=== PATIENT | male | born 1975 | race Caucasian/White ===

== ENCOUNTER 2017-02-25 16:09 | Emergency (ER) | payer OTHER ==
[~2017-02-25] VITALS: Ht 175.3 cm; Wt 107.3 kg
[~2017-02-25 16:09] MED LIST: IRON325T PO; MULTTAB50 PO; PRIL40CA
[2017-02-25 16:10] VITALS: BP 156/78
--- NOTE | 2017-02-25 19:40 | REPUSA ---
CLINICAL HISTORY: Left flank pain. TECHNIQUE: Multiple axial, coronal, sagittal CT images were obtained through the abdomen and pelvis without administration of oral or IV contrast material. COMMENTS: The liver is of uniform attenuation without mass or defect. There is no intra or extrahepatic biliar y ductal dilatation. The spleen is mildly enlarged measuring 14.5 cm. The gallbladder is contracted . The pancreas is of normal contour and attenuation characteristics. There is no evidence of adrena l mass. The kidneys are normal in size, shape and configuration. No renal or ureteral calculi are identified . There is no hydroureter or hydronephrosis. There is no evidence for appendicitis. There is no bowel wall thickening. No evidence for small or large bowel obstruction. There is no evidence of abdominal ascites or lymphadenopathy. There is no evidence of intrinsic or extrinsic bladder mass. There is no pelvic ascites or lymphaden opathy. The prostate gland is mildly enlarged containing calcifications. Please correlate with PSA levels. Images of the lung bases show no evidence of pleural or parenchymal mass. There are no pleural effus ions. Small fat containing umbilical hernia is seen. Note is made of an expansile mass involving the left tenth lateral rib measuring 3.5 x 2.6 cm. This may represent a benign lesion such as fibrous dysplasia nevertheless further evaluation is recommende d with MRI pre and post contrast. Biopsy may also be considered. IMPRESSION: 1. Mild splenomegaly. 2. Mildly enlarged prostate. 3. Small fat containing umbilical hernia is seen. 4. Contracted gallbladder. 5. Expansile mass involving the left tenth lateral rib. This may represent a benign lesion such as fibrous dysplasia nevertheless further evaluation is recommended with MRI pre and post contrast. Bio psy may also be considered.
[2017-02-25] MEDS ORDERED: IBUP-1022 PO (19:53)
--- NOTE | 2017-02-25 20:09 | ED PDOC ---
Post-Departure Follow-Up pt left without discussing results, mail discharge paperwork Aj Marinelli Feb 25, 2017 20:09
== END 2017-02-25 20:05 | disposition home or self-care (01) ==
LOC: M ED 16:09
DX: R22.2 Localized swelling, mass and lump, trunk (principal); I10 Essential (primary) hypertension; Z84.1 Family history of disorders of kidney and ureter; Z87.09 Personal history of other diseases of the respiratory system

== ENCOUNTER 2018-04-10 11:40 | Observation (INO) | payer OTHER ==
[~2018-04-10] VITALS: Ht 175.3 cm; Wt 106.8 kg
[~2018-04-10 11:40] MED LIST changes: +IBUP-1022 PO
[2018-04-10] MEDS ORDERED: VITA100T56 PO (11:51)
[2018-04-10] MEDS ORDERED: VITA200016 PO (11:51)
[2018-04-10] MEDS ORDERED: VITA100T59 PO (11:51)
[2018-04-10] MEDS ORDERED: VITA-193 PO (11:51)
[2018-04-10] MEDS ORDERED: FOLI800C PO (11:51)
[2018-04-10 12:30] LABS: BASO % 0.5 % (0.0-1.0); EOS # 0.1 10^3/uL (0.0-0.50); EOS % 2.2 % (0.0-3.0); HEMATOCRIT 20.2 % (42.0-52.0); LYMPH # 0.6 10^3/uL (1.5-4.5); LYMPH % 13.2 % (24.0-44.0); MEAN CORPUSCULAR HEMOGLOBIN 14.3 pg (27.0-33.0); MEAN CORPUSCULAR HGB CONC 22.3 g/dl (32.0-36.5); MEAN CORPUSCULAR VOLUME 64.3 fl (80.0-96.0); MONO # 0.2 10^3/uL (0.0-0.8); MONO % 5.5 % (0.0-5.0); NEUTROPHILS # 3.2 10^3/uL (1.8-7.7); NEUTROPHILS % 77.4 % (36.0-66.0); PLATELET COUNT, AUTOMATED 367 10^3/uL (150-450); RED BLOOD COUNT 3.14 10^6/uL (4.30-6.10); WHITE BLOOD COUNT 4.2 10^3/uL (4.0-10.0)
[2018-04-10 12:32] LABS: HEMOGLOBIN 4.5 g/dl (13.5-17.5)
[2018-04-10 12:48] LABS: ALBUMIN 3.9 GM/DL (3.2-5.2); ALT/SGPT 72 U/L (12-78); BILIRUBIN,TOTAL 0.6 MG/DL (0.2-1.0); BLOOD UREA NITROGEN 8 MG/DL (7-18); CALCIUM LEVEL 8.5 MG/DL (8.5-10.1); CARBON DIOXIDE LEVEL 25 MEQ/L (21-32); CHLORIDE LEVEL 107 MEQ/L (98-107); CK-MB VALUE MASS < 1.0 NG/ML (<3.6); CPK CREATINE PHOSPHOKINASE 45 U/L (39-308); GLOMERULAR FILTRATION RATE > 60.0 (>60); GLUCOSE, FASTING 98 MG/DL (70-100); MB/CK RELATIVE INDEX 2.22 (< OR =4); SODIUM LEVEL 137 MEQ/L (136-145); TOTAL PROTEIN 7.4 GM/DL (6.4-8.2); TROPONIN I < 0.02 NG/ML (< 0.10)
[2018-04-10] MEDS ORDERED: IRONCAP2 PO (14:16)
[2018-04-10] MEDS ORDERED: ASCO500T PO (14:16)
[2018-04-10] MEDS ORDERED: VITA1CAP20 PO (14:16)
[2018-04-10] MEDS ORDERED: VITA400C67 PO (14:16)
[2018-04-10] MEDS ORDERED: B-122500 PO (14:16)
[2018-04-10] MEDS ORDERED: VITA100066 PO (14:17)
[2018-04-10] MEDS ORDERED: VITA80003 PO (14:17)
[2018-04-10 14:47] LABS: FERRITIN 2 NG/ML (26-388); IRON (FE) 7 UG/DL (65-175); PERCENT SATURATION 1.3 % (19.7-50.0); TOTAL IRON BINDING CAPACITY 542 UG/DL (250-450)
[2018-04-10 16:45] VITALS: BP 142/93
--- NOTE | 2018-04-10 17:29 | ECGEPIP ---
Stationary ECG Study [facility] - ED Test Date: 2018-04-10 Pat Name: RUBIN BACA Department: Room: - Gender: M Data Operations Director: [facility] : 1975 Requested By: ANNALEE Ascencio PA-C Order Number: [id number] Reading MD: Estefanía Marcum Measurements Intervals [place] Rate: 70 P: 40 LA: 181 QRS: 45 QRSD: 97 T: 34 QT: 391 QTc: 424 Interpretive Statements SINUS RHYTHM NO PRIOR FOR COMPARISON Electronically Signed On 04-10-2018 17:29:23 EST by Estefanía Marcum
[2018-04-10 22:00] VITALS: BP 144/72
--- NOTE | 2018-04-10 22:26 | HPE ---
DATE OF ADMISSION: 04/10/2018 42-year-old male with a past medical history of internal hemorrhoids, status post banding by Dr. Anne in 2014, who presents to the emergency room with generalized weakness and sinus headache. Incidentally, the patient had blood work done and was found to have a hemoglobin of 4.5 and hematocrit 20.2. The patient was typed and crossed for 4 units of packed red blood cell. Upon questioning the patient, he has always been feeling generally weak and he has been having bouts of bright red blood per rectum for a couple of days and then a couple of days of blood free stool and this has been going on since 2014. He had an endoscopy and colonoscopy done by Dr. Anne and he only found internal hemorrhoids and subsequently had then banded. The patient said that he was blood free from the stool for quite some time but then it started to continue and it has been going on for a couple of years. His last blood work, he claims, was in 2014, which when I did the research it was correct, his last blood work was back on 08/09/2014. The patient denies any chest pain or palpitations, and will be admitted for further management. PAST MEDICAL HISTORY: 1. Lower gastrointestinal bleed back in 2014 and status post internal hemorrhoid banding. ALLERGIES: No known drug allergies. FAMILY HISTORY: Noncontributory. SOCIAL HISTORY: The patient denies tobacco, alcohol or illicit drugs. MEDICATIONS: He takes at home: - vitamin C 1000 mg orally daily - vitamin D 1000 units orally daily - vitamin B12 5000 mcg orally daily - folic acid 800 mcg orally daily - iron complex two caplets orally daily - vitamin A 3000 units orally daily - vitamin E 400 units orally daily - vitamin K 200 mcg orally daily REVIEW OF SYSTEMS: Negative for all ten major systems except what is mentioned in the history of present illness. VITAL SIGNS: Blood pressure 143/73, heart rate is 79 and regular, respiratory rate is 18, temperature 96.8, oxygen saturation 100% on room air. PHYSICAL EXAMINATION: Head is atraumatic, normocephalic. Neck is supple with no jugular venous distention (JVD). Lungs clear to auscultation. S1, S2 audible. No murmurs appreciated. Abdomen is soft. Positive bowel sounds. No pedal edema. Skin is intact. Neurologic examination, the patient is awake, alert and oriented times three. LABORATORIES: WBC 4.2, hemoglobin 4.5, hematocrit 20.2, platelets are 367,000. Sodium 137, potassium 4.0, chloride 107, CO2 of 25, BUN 8, creatinine 0.8, fasting glucose 98, transferrin saturation is 1.3, ferritin is 2, troponin is less than 0.02. IMPRESSION: 1. Gastrointestinal bleed. 2. Acute blood loss anemia. PLAN: The patient is to be admitted to the medical/surgical floor. We will give the patient 2 units of packed red blood cell, he will likely need a third. Follow post transfusion complete blood count (CBC). This is likely a progressive slow bleed that has been going on for years. He is extremely iron deficient. After the blood transfusion, we may also consider giving him some IV iron. However, this bleeding needs to stop. We will have Dr. Mcdonald see the patient and see if any inpatient intervention is necessary or should he be discharged and followup as an outpatient. We will continue following his care on the medical/surgical floor.
[2018-04-11 06:00] VITALS: BP 150/69
[2018-04-11 06:00] LABS: BASO # 0.1 10^3/uL (0.0-0.2); EOS # 0.2 10^3/uL (0.0-0.50); EOS % 3.4 % (0.0-3.0); HEMATOCRIT 23.7 % (42.0-52.0); LYMPH # 1.2 10^3/uL (1.5-4.5); LYMPH % 20.3 % (24.0-44.0); MEAN CORPUSCULAR HEMOGLOBIN 16.6 pg (27.0-33.0); MEAN CORPUSCULAR HGB CONC 24.9 g/dl (32.0-36.5); MEAN CORPUSCULAR VOLUME 66.6 fl (80.0-96.0); MONO # 0.5 10^3/uL (0.0-0.8); MONO % 8.4 % (0.0-5.0); NEUTROPHILS % 66.2 % (36.0-66.0); PLATELET COUNT, AUTOMATED 384 10^3/uL (150-450); RED BLOOD COUNT 3.56 10^6/uL (4.30-6.10)
[2018-04-11 06:04] LABS: HEMOGLOBIN 5.9 g/dl (13.5-17.5)
[2018-04-11 06:26] LABS: BLOOD UREA NITROGEN 8 MG/DL (7-18); CALCIUM LEVEL 8.2 MG/DL (8.5-10.1); CARBON DIOXIDE LEVEL 24 MEQ/L (21-32); CHLORIDE LEVEL 108 MEQ/L (98-107); CREATININE FOR GFR 0.77 MG/DL (0.70-1.30); GLOMERULAR FILTRATION RATE > 60.0 (>60); GLUCOSE, FASTING 121 MG/DL (70-100); POTASSIUM SERUM 3.8 MEQ/L (3.5-5.1); SODIUM LEVEL 139 MEQ/L (136-145)
[2018-04-11 08:26] LABS: ALBUMIN 3.6 GM/DL (3.2-5.2); ALT/SGPT 65 U/L (12-78); BILIRUBIN,DIRECT 0.1 MG/DL (0.0-0.2); BILIRUBIN,TOTAL 0.7 MG/DL (0.2-1.0)
[2018-04-11 08:38] LABS: INR 1.03; PROTHROMBIN TIME 13.6 SECONDS (12.1-14.4)
[2018-04-11] MEDS: VITAMIN E 400 INTERNATIONAL UNITS CAP PO SCH (09:59)
[2018-04-11] MEDS: FERROUS SULFATE 325MG TAB PO SCH ×2 (09:59→20:30)
[2018-04-11] MEDS: FOLIC ACID 1 MG TAB PO SCH (09:59)
[2018-04-11] MEDS: VITAMIN D 1,000 INTERNATIONAL UNITS TABLET PO SCH (10:00)
[2018-04-11] MEDS: ASCORBIC ACID 500 MG TAB PO SCH (10:00)
[2018-04-11 10:33] VITALS: BP 127/74
[2018-04-11 14:00] VITALS: BP 130/75
--- NOTE | 2018-04-11 15:58 | IPN ---
DATE: 04/11/2018 SUBJECTIVE: The patient tells me that he is feeling better this morning. He has no specific complaints at this time. He has not noticed any further bleeding overnight. OBJECTIVE: VITAL SIGNS: Temperature 98.2, pulse 71, respiratory rate 16, blood pressure 150/69, oxygen saturation 100% on room air. GENERAL: He is a well-built, muscular, man sitting on the edge of his bed accompanied by his . He does not appear to be in any acute distress. HEENT: Cranial nerves II-XII grossly intact. He has conjunctival pallor. Moist mucous membranes. No elevation of central venous pressure. CARDIOVASCULAR: S1, S2. Regular rate and rhythm. RESPIRATORY EXAMINATION: Clear. ABDOMINAL EXAMINATION: Benign. EXTREMITIES: No clubbing, cyanosis or edema. LABORATORY STUDIES: WBC 6.0, hemoglobin 5.9, up from 4.5, hematocrit 23.7, platelet count 384. Chemistry panel: Sodium 139, potassium 3.8, chloride 108, bicarbonate 24, BUN 8, creatinine 0.8. Iron 7, total iron binding capacity (TIBC) 542, ferritin 2, transferrin % saturation 1.3. AST 30, down from 39, alkaline phosphatase 111, down from 119, ALT 65. Troponin was negative. INR 1.0. No imaging. ASSESSMENT AND PLAN: This is a 42-year-old man with symptomatic anemia. PROBLEMS: Symptomatic anemia. Likely secondary to gastrointestinal (GI) losses. I question the acuity of it, given how low it is. Looking back, it looks like his hemoglobin was 3.7 back in July 2014 and it improved to 4.9. He reportedly had bandings for internal hemorrhoids done by Dr. Anne. The patient has had intermittent bright red bleeding for the last several years. I suspect that his hemoglobin has gradually trended down to this level and that he needs more definitive evaluation for this banding. I did speak with Dr. Mcdonald of general surgery today, who suggested outpatient followup with Dr. Anne. His hemoglobin did improve from 4.5 to 5.9 this morning, as did his symptoms; however, I do not feel as though his source of bleeding has been adequately addressed and as such, I will give him an additional 2 units at this time in order to optimize his hemoglobin until he is able to follow up in the general surgery clinic for arranging hemorrhoidal banding. I suspect that this bleeding is not acute, but rather has been longstanding and chronic. It appears though he has been anemic with a hemoglobin at [address] back until 2008. I did have a lengthy discussion with both the patient and his , that his iron stores are essentially nonexistent and that in order to replenish these, he will have to first stop his bleeding. We will first transfuse him, then have the patient stop his bleedings and then continue with iron supplementation for a lengthy period of time, but it is important for him as to not overburden his heart and the rest of his body with such low blood volume. He demonstrates good understanding of this and informed me he will be in strict compliance with his physician. Provided his hemoglobin remains stable, no further bleeding and he receives 2 additional units, I expect he could be discharged home with close followup with general surgery as early as tomorrow.
[2018-04-11 16:20] VITALS: BP 132/64
[2018-04-11] MEDS: CYANOCOBALAMIN 500 MCG TAB PO SCH (18:07)
[2018-04-11 18:08] LABS: HEMATOCRIT 28.8 % (42.0-52.0); HEMOGLOBIN 7.7 g/dl (13.5-17.5)
[2018-04-11 22:00] VITALS: BP 140/88
[2018-04-12 05:58] LABS: HEMATOCRIT 27.2 % (42.0-52.0); HEMOGLOBIN 7.1 g/dl (13.5-17.5); MEAN CORPUSCULAR HEMOGLOBIN 18.4 pg (27.0-33.0); MEAN CORPUSCULAR HGB CONC 26.1 g/dl (32.0-36.5); MEAN CORPUSCULAR VOLUME 70.5 fl (80.0-96.0); PLATELET COUNT, AUTOMATED 400 10^3/uL (150-450); RED BLOOD COUNT 3.86 10^6/uL (4.30-6.10); WHITE BLOOD COUNT 5.2 10^3/uL (4.0-10.0)
[2018-04-12 06:00] VITALS: BP 135/71
[2018-04-12 06:13] LABS: BLOOD UREA NITROGEN 10 MG/DL (7-18); CALCIUM LEVEL 8.3 MG/DL (8.5-10.1); CARBON DIOXIDE LEVEL 25 MEQ/L (21-32); CHLORIDE LEVEL 107 MEQ/L (98-107); CREATININE FOR GFR 0.88 MG/DL (0.70-1.30); GLOMERULAR FILTRATION RATE > 60.0 (>60); GLUCOSE, FASTING 92 MG/DL (70-100); SODIUM LEVEL 140 MEQ/L (136-145)
[2018-04-12] MEDS: VITAMIN D 1,000 INTERNATIONAL UNITS TABLET PO SCH (08:19)
[2018-04-12] MEDS: ASCORBIC ACID 500 MG TAB PO SCH (08:19)
[2018-04-12] MEDS: FOLIC ACID 1 MG TAB PO SCH (08:19)
[2018-04-12] MEDS: FERROUS SULFATE 325MG TAB PO SCH (08:19)
[2018-04-12] MEDS: VITAMIN E 400 INTERNATIONAL UNITS CAP PO SCH (08:19)
[2018-04-12] MEDS: CYANOCOBALAMIN 500 MCG TAB PO SCH (08:20)
--- NOTE | 2018-04-12 08:34 | CR ---
DATE OF CONSULTATION: 04/11/2018 REASON FOR CONSULTATION: Gastrointestinal (GI) bleed. HISTORY OF PRESENT ILLNESS: The patient is a 42-year-old male, a patient of Dr. Anne, who has had a history of GI bleeding dating back to 2014 due to internal and external hemorrhoids. He had endoscopies completed then that showed that all of his bleeding was from his hemorrhoids. He then underwent banding in the office and went for about 9 months without any bleeding. Since then, he has had intermittent bleeding on and off of bright red blood only with bowel movements, never to the point where he came back to be reevaluated and have repeat banding done. For the past couple of months, he has started to feel a little weak. He came into the emergency room yesterday complaining of sinus issues and incidentally they noted that his hemoglobin was down to 4.5 so he was admitted and transfused overnight. This morning, he feels much stronger. He does not have any of the weakness that he had on admission. His hemoglobin is only up to 5.9 after 2 units, but he has no symptoms currently. His iron studies show that he is very depleted of iron, even though he has already been on iron supplement outpatient. He has not had any problems with any bleeding since he has been in the hospital. PAST MEDICAL HISTORY: GI bleeding and internal hemorrhoids. PAST SURGICAL HISTORY: Hemorrhoid banding. ALLERGIES: None. FAMILY HISTORY: Noncontributory. HOME MEDICATIONS: Please see med record. SOCIAL HISTORY: Denies drug, alcohol or tobacco abuse. REVIEW OF SYSTEMS: Per positives and negatives as stated in history of present illness (HPI). PHYSICAL EXAMINATION: General: Alert and oriented times three. No acute distress. Vitals: Temperature 98.2, pulse 71, respirations 16, blood pressure 150/69, pulse oximetry 100% on room air. HEENT: Pupils equally round and react to light and accommodation. Heart: S1, S2. Regular rate and rhythm. Lungs: Clear to auscultation bilaterally. Abdomen: Soft, nontender, nondistended. Extremities: No clubbing, cyanosis or edema. LABORATORIES: White count 6, hemoglobin 4.5 and up to 5.9 this morning, platelets 384. Iron is 7, transferrin saturation is 1.3%. Ferritin is 2. ASSESSMENT/PLAN: The patient is a 42-year-old male with signs and symptoms consistent with lower GI bleed most likely secondary to his history of hemorrhoids. Recommendation is to stabilize him medically and possibly given him another unit or two transfusion today. He can then be discharged home and follow up with Dr. Anne in the office to do banding in the office as an outpatient. Inpatient banding is not possible at this point and it is unnecessary to take him to the operating room abd just have the banding done and he can do this in the office. There is no emergency at this point. If for some reason he starts to bleed profusely, then we will definitely readdress it at that time. However, at this point, he can definitely wait and be seen in the office.
[2018-04-12] MEDS ORDERED: FERR1TAB8 PO (09:59)
--- NOTE | 2018-04-12 10:11 | DS.PDOC ---
Discharge Summary General Date of Admission Apr 10, 2018 at 15:15 Date of Discharge 04/12/2018 Discharge Summary PROCEDURES PERFORMED DURING STAY: [None]. ADMITTING DIAGNOSES / DISCHARGE DIAGNOSES: Symptomatic anemia - likely 2/2 GI blood loss DVT prophylaxis COMPLICATIONS/CHIEF COMPLAINT: Acute Blood Loss Anemia Gi Bleed. HISTORY OF PRESENT ILLNESS: Patient is a 42 year old male with a PMHx of Internal hemorrhoids (s/p banding w/ Dr. Anne 2014) who presented to [facility] with generalized weakness / sinus headache. Patient had blood work competed that revealed a Hg of 4.5. He was admitted to hospitalist service for further evaluation and treatment. Surgery was called on consultation. HOSPITAL COURSE: Symptomatic anemia - likely 2/2 GI blood loss - Presented with light-headedness / dizziness; has had complete resolution of symptoms; denies any additional rectal bleeding - Hx of rectal hemorrhoid banding with Dr. Anne (2014) - Physical non-revealing - s/p 4 units PRBC - Hg improved to 7.7 from 4.5 - Appears stable - c/w Ferrous sulfate - Dr. Mcdonald onboard; will have outpatient f/u with Dr Anne for suspected internal hemorrhoids DVT prophylaxis - c/w SCDs ALLERGIES: Please see below. PHYSICAL EXAMINATION ON DISCHARGE: Vitals (See below) General: Lying in bed, no acute distress, comfortable, AAOx3 HEENT: NC, AT CVS: RRR, +S1S2 Lungs: Fair air entry b/l, -w/r/r Abdomen: Soft, ND, NT Extremities: - Edema, - Calf tenderness LABORATORY DATA: Please see below. ACTIVITY: [As tolerated]. DISCHARGE PLAN: Follow up with PCP and Dr. Anne within 7 days Remain compliant with treatment plan and medications Return to the ER if you experience any problems DISPOSITION: Home DISCHARGE CONDITION: [Stable]. TIME SPENT ON DISCHARGE: Greater than [35] minutes. Vital Signs/I&Os Vital Signs Date Time Temp Pulse Resp B/P (MAP) Pulse Ox O2 Delivery O2 Flow Rate FiO2 04/12/18 06:00 98.1 59 18 135/71 (92) 98 Room Air I&O- Last 24 Hours up to 6 AM 04/12/18 06:00 Intake Total 1800 ml Output Total 0 ml Balance 1800 ml Laboratory Data Labs 24H Laboratory Tests 2 04/12/18 05:15: Nucleated Red Blood Cells % (auto) 0.6H, Anion Gap 8, Glomerular Filtration Rate > 60.0, Blood Urea Nitrogen 10, Creatinine 0.88, Sodium Level 140, Potassium Level 4.0, Chloride Level 107, Carbon Dioxide Level 25, Calcium Level 8.3L CBC/BMP Laboratory Tests 04/11/18 17:03 04/12/18 05:15 Red Blood Count 3.86 L, Mean Corpuscular Volume 70.5 L, Mean Corpuscular Hemoglobin 18.4 L, Mean Corpuscular Hemoglobin Concent 26.1 L, Red Cell Distribution Width 28.9 H, Calcium Level 8.3 L Discharge Medications Scheduled (Folic Acid) 800 Mcg Cap, 800 MCG PO DAILY, (Reported) (Vitamin K2) 100 Mcg Cap, 100 MCG PO DAILY, (Reported) (Vitamin A) 8,000 Unit Cap, 8,000 UNIT PO DAILY, (Reported) Ascorbic Acid (Ascorbic Acid) 500 Mg Tab, 1,000 MG PO DAILY, (Reported) Cholecalciferol (Vitamin D) 1,000 Unit Tab, 1,000 UNIT PO DAILY, (Reported) Cyanocobalamin (B-12) 2,500 Mcg Tab, 5,000 MCG PO DAILY, (Reported) Ferrous Sulfate (Ferrous Sulfate) 325 Mg Tab, 325 MG PO BID Vitamin E (Vitamin E-400) 400 Unit Cap, 400 UNIT PO DAILY, (Reported) Allergies Coded Allergies: Gluten Flour (Verified Allergy, Unknown, 04/10/18) JOEL BOYKIN MD Apr 12, 2018 10:11
[2018-04-12 10:25] LABS: HEMATOCRIT 30.6 % (42.0-52.0)
== END 2018-04-12 11:30 | disposition home or self-care (01) ==
LOC: M ED 11:40 → M ED INP 15:15 → M MS5PR 16:35
PROVIDERS: ADMIT Internal Medicine; ATTEND Internal Medicine
DX: K92.2 Gastrointestinal hemorrhage, unspecified (principal); D62 Acute posthemorrhagic anemia; Z79.899 Other long term (current) drug therapy; M62.81 Muscle weakness (generalized)
CPT/HCPCS: 36415; 36430; 80048; 80053; 80076; 82550; 82553; 82728; 83550; 84484; 85014; 85018; 85025; 85027; 85610; 86850; 86900; 86901; 86920; 93005; 99285; P9016

== ENCOUNTER → 2018-04-28 | Outpatient (REF) | payer OTHER ==
[~2018-04-28] MED LIST changes: +ASCO500T PO; +B-122500 PO; +FERR1TAB8 PO; +FOLI800C PO; +IRONCAP2 PO; +VITA-193 PO; +VITA100066 PO; +VITA100T56 PO; +VITA100T59 PO; +VITA1CAP20 PO; +VITA200016 PO; +VITA400C67 PO; +VITA80003 PO
[2018-04-28 11:16] LABS: BASO # 0.1 10^3/uL (0.0-0.2); EOS # 0.2 10^3/uL (0.0-0.50); EOS % 5.3 % (0.0-3.0); HEMATOCRIT 40.9 % (42.0-52.0); HEMOGLOBIN 10.5 g/dl (13.5-17.5); LYMPH % 24.8 % (24.0-44.0); MEAN CORPUSCULAR HEMOGLOBIN 20.2 pg (27.0-33.0); MEAN CORPUSCULAR HGB CONC 25.7 g/dl (32.0-36.5); MEAN CORPUSCULAR VOLUME 78.7 fl (80.0-96.0); MONO # 0.4 10^3/uL (0.0-0.8); MONO % 9.1 % (0.0-5.0); NEUTROPHILS # 2.3 10^3/uL (1.8-7.7); NEUTROPHILS % 58.3 % (36.0-66.0); PLATELET COUNT, AUTOMATED 417 10^3/uL (150-450)
[2018-04-28 11:26] LABS: ALT/SGPT 59 U/L (12-78); BILIRUBIN,TOTAL 0.5 MG/DL (0.2-1.0); BLOOD UREA NITROGEN 9 MG/DL (7-18); CALCIUM LEVEL 8.8 MG/DL (8.5-10.1); CARBON DIOXIDE LEVEL 29 MEQ/L (21-32); CHLORIDE LEVEL 106 MEQ/L (98-107); CHOLESTEROL LEVEL 129 MG/DL (<200); CHOLESTEROL RISK RATIO 4.161 (<5); CREATININE FOR GFR 0.78 MG/DL (0.70-1.30); FREE T4 0.88 NG/DL (0.76-1.46); GLOMERULAR FILTRATION RATE > 60.0 (>60); GLUCOSE, FASTING 84 MG/DL (70-100); HDL CHOLESTEROL 31 MG/DL (>40); LDL CHOLESTEROL 65 MG/DL (<100); NON-HDL-C 98 MG/DL; POTASSIUM SERUM 4.7 MEQ/L (3.5-5.1); SODIUM LEVEL 142 MEQ/L (136-145); TOTAL PROTEIN 7.6 GM/DL (6.4-8.2); TRIGLYCERIDES LEVEL 163 MG/DL (<150)
== END ==
LOC: M SFHCCLAY 08:44
PROVIDERS: ATTEND Nurse Practitioner Family
DX: D62 Acute posthemorrhagic anemia (principal); K64.8 Other hemorrhoids; K90.41 Non-celiac gluten sensitivity; Z13.220 Encounter for screening for lipoid disorders

== ENCOUNTER → 2019-06-21 | Outpatient (CLI) | payer OTHER ==
[~2019-06-21] MED LIST changes: +CYAN500T9 PO; +GASTROGRAFIN SOLUTION 30ML (Q9963) As Ordered ONE; +ISOVUE-370 76% 100ML VIAL (Q9967) As Ordered ONE; -VITA-193 PO
== END ==
LOC: M RAD 12:18
PROVIDERS: ATTEND Nurse Practitioner Family
DX: K42.9 Umbilical hernia without obstruction or gangrene (principal)

== ENCOUNTER → 2019-07-07 | Outpatient (CLI) | payer OTHER ==
[~2019-07-07] MED LIST changes: -GASTROGRAFIN SOLUTION 30ML (Q9963) As Ordered ONE; -ISOVUE-370 76% 100ML VIAL (Q9967) As Ordered ONE
--- NOTE | 2019-07-07 17:53 | REP ---
MRI LEFT CHEST WALL WITH AND WITHOUT CONTRAST: Multiple sequences obtained in the axial and coronal planes, prior to and following the intravenous administration of 12 mL ProHance. Correlation made with CT 06/21/2019. Again noted in the lateral left 10th ribs is an expansile lesion which is predominately hypointense on T1 and heterogeneously mildly hyperintense on T2. There is enhancement with the intravenous administration of gadolinium. The lesion measures 4.5 x 5.9 x 2.8 cm. 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 No other chest wall lesion is seen. The underlying visualized intraabdominal structures are unremarkable. IMPRESSION: Expansile mass involving the left 10th rib laterally as described above. 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 Electronically Signed by Yadiel Cardenas MD 07/10/2019 03:13 P
== END ==
LOC: M RAD 14:40
PROVIDERS: ATTEND Nurse Practitioner Family
DX: M89.9 Disorder of bone, unspecified (principal)

== ENCOUNTER → 2019-12-12 | Outpatient (REF) | payer OTHER ==
[~2019-12-12] MED LIST changes: +CYAN500T10 PO; -CYAN500T9 PO
[2019-12-14 14:13] LABS: TESTOSTERONE FREE (DIRECT) 7.2 pg/mL (6.8-21.5)
== END ==
LOC: M LABDRAWC 19:19
PROVIDERS: ATTEND Nurse Practitioner Family
DX: R53.83 Other fatigue (principal)

== ENCOUNTER → 2020-02-07 | Outpatient (REF) | payer OTHER ==
[2020-02-07 12:40] LABS: THYROID STIMULATING HORMONE 1.7 uIU/ML (0.358-3.740)
[2020-02-07 12:42] LABS: PROLACTIN 8.5 NG/ML (2.1-17.7)
[2020-02-07 12:43] LABS: FOLLICLE STIMULATING HORMONE 3.2 mIU/mL (1.4-18.1); LUTEINIZING HORMONE 3.3 mIU/mL (1.5-9.3)
[2020-02-09 21:07] LABS: TESTOSTERONE %FREE+WEAKLY BOUN 32.7 % (9.0-46.0); TESTOSTERONE FREE+WEAKLY BOUND 86.7 ng/dL (40.0-250.0); TESTOSTERONE TOTAL 265 ng/dL (264-916)
== END ==
LOC: M LABDRAWC 11:26
PROVIDERS: ATTEND Nurse Practitioner Family
DX: E29.1 Testicular hypofunction (principal)

== ENCOUNTER → 2020-02-22 | Outpatient (REF) | payer OTHER ==
[2020-02-27 15:07] LABS: TESTOSTERONE %FREE+WEAKLY BOUN 41.3 % (9.0-46.0); TESTOSTERONE FREE+WEAKLY BOUND 124.7 ng/dL (40.0-250.0); TESTOSTERONE TOTAL 302 ng/dL (264-916)
== END ==
LOC: M LABDRWAD 11:12 → M LABDRAWC 11:12
PROVIDERS: ATTEND Nurse Practitioner Family
DX: E29.1 Testicular hypofunction (principal)

== ENCOUNTER 2021-05-16 17:06 | Inpatient (IN) | payer OTHER ==
[~2021-05-16] VITALS: Ht 175.3 cm; Wt 107.2 kg
[~2021-05-16 17:06] MED LIST changes: -CYAN500T10 PO; +VITA500T37 PO
[2021-05-16 19:19] LABS: BASO % 0.7 % (0.0-1.0); EOS # 0.1 10^3/uL (0.0-0.5); EOS % 1.4 % (0.0-3.0); LYMPH # 0.9 10^3/uL (1.5-5.0); LYMPH % 15.1 % (24.0-44.0); MEAN CORPUSCULAR HEMOGLOBIN 13.8 pg (27.0-33.0); MEAN CORPUSCULAR HGB CONC 22.5 g/dl (32.0-36.5); MEAN CORPUSCULAR VOLUME 61.1 fl (80.0-96.0); MONO # 0.3 10^3/uL (0.0-0.8); MONO % 5.6 % (2.0-8.0); NEUTROPHILS # 4.5 10^3/uL (1.5-8.5); NEUTROPHILS % 76.7 % (36.0-66.0); PLATELET COUNT, AUTOMATED 494 10^3/uL (150-450); RED BLOOD COUNT 3.34 10^6/uL (4.30-6.10); WHITE BLOOD COUNT 5.9 10^3/uL (4.0-10.0)
[2021-05-16 19:39] LABS: HEMATOCRIT 20.4 % (42.0-52.0); HEMOGLOBIN 4.6 g/dl (13.5-17.5)
[2021-05-16 19:53] LABS: ALT/SGPT 28 U/L (12-78); AMYLASE 71 U/L (25-115); BILIRUBIN,DIRECT 0.2 MG/DL (0.0-0.2); BILIRUBIN,TOTAL 0.5 MG/DL (0.2-1.0); BLOOD UREA NITROGEN 10 MG/DL (7-18); CALCIUM LEVEL 8.6 MG/DL (8.5-10.1); CARBON DIOXIDE LEVEL 25 MEQ/L (21-32); CHLORIDE LEVEL 105 MEQ/L (98-107); CK-MB VALUE MASS 1.8 NG/ML (<3.6); CREATININE FOR GFR 0.83 MG/DL (0.70-1.30); GLOMERULAR FILTRATION RATE > 60.0 (>60); GLUCOSE, FASTING 80 MG/DL (70-100); LIPASE 116 U/L (73-393); MB/CK RELATIVE INDEX 1.32 (< OR =4); POTASSIUM SERUM 3.9 MEQ/L (3.5-5.1); SODIUM LEVEL 136 MEQ/L (136-145)
[2021-05-16 20:17] LABS: INR 1.04; PARTIAL THROMBOPLASTIN TIME 25.7 SECONDS (25.9-37.0)
[2021-05-16 22:10] VITALS: BP 126/61
[2021-05-16 22:25] VITALS: BP_SYST 131; BP_DIAS 7; BP_DIAS 71
[2021-05-16] MEDS ORDERED: ZINC1TAB2 PO (23:17)
[2021-05-16] MEDS ORDERED: RA N1TAB PO (23:17)
[2021-05-16] MEDS ORDERED: FISH1000 PO (23:17)
[2021-05-16] MEDS ORDERED: VITA1CAP20 PO (23:17)
[2021-05-16] MEDS ORDERED: FERR1TAB8 PO (23:17)
[2021-05-16] MEDS ORDERED: HOME MED LIST COMPLETE! XX SCH (23:20)
[2021-05-16 23:30] VITALS: BP 128/68
[2021-05-16] MEDS ORDERED: MAALOX 30 ML SUSP *UDC PO PRN (23:45)
[2021-05-16] MEDS ORDERED: ACETAMINOPHEN TAB 650MG DOSE (2X325MG) PO PRN (23:45)
[2021-05-16] MEDS ORDERED: MOM 30ML SUSPENSION UDC PO PRN (23:45)
[2021-05-17] VITALS (11 sets, daily range): BP systolic 120–143; BP diastolic 58–79
[2021-05-17 09:27] LABS: BASO # 0.1 10^3/uL (0.0-0.2); BASO % 1.6 % (0.0-1.0); EOS # 0.1 10^3/uL (0.0-0.5); EOS % 2.9 % (0.0-3.0); HEMATOCRIT 26.9 % (42.0-52.0); LYMPH # 0.6 10^3/uL (1.5-5.0); LYMPH % 16.9 % (24.0-44.0); MEAN CORPUSCULAR HEMOGLOBIN 17.5 pg (27.0-33.0); MEAN CORPUSCULAR VOLUME 67.1 fl (80.0-96.0); MONO # 0.3 10^3/uL (0.0-0.8); MONO % 8.2 % (2.0-8.0); NEUTROPHILS # 2.7 10^3/uL (1.5-8.5); NEUTROPHILS % 69.9 % (36.0-66.0); PLATELET COUNT, AUTOMATED 405 10^3/uL (150-450); RED BLOOD COUNT 4.01 10^6/uL (4.30-6.10); WHITE BLOOD COUNT 3.8 10^3/uL (4.0-10.0)
[2021-05-17 09:39] LABS: ALBUMIN 3.8 GM/DL (3.2-5.2); ALT/SGPT 26 U/L (12-78); BILIRUBIN,TOTAL 2.6 MG/DL (0.2-1.0); BLOOD UREA NITROGEN 6 MG/DL (7-18); CALCIUM LEVEL 8.5 MG/DL (8.5-10.1); CARBON DIOXIDE LEVEL 25 MEQ/L (21-32); CHLORIDE LEVEL 111 MEQ/L (98-107); CREATININE FOR GFR 0.82 MG/DL (0.70-1.30); GLOMERULAR FILTRATION RATE > 60.0 (>60); GLUCOSE, FASTING 102 MG/DL (70-100); POTASSIUM SERUM 4.1 MEQ/L (3.5-5.1); SODIUM LEVEL 140 MEQ/L (136-145); TOTAL PROTEIN 7.1 GM/DL (6.4-8.2)
== END 2021-05-17 14:00 | disposition home or self-care (01) | DRG 812 ==
LOC: M ED 17:06 → M ED INP 23:42 → M MSPAV 05-17 01:31
PROVIDERS: ADMIT Family Medicine; ATTEND Family Medicine
PROC: 30233N1 Transfusion of Nonautologous Red Blood Cells into Peripheral Vein, Percutaneous Approach (ICD-10-PCS; principal; 2021-05-16)
DX: D62 Acute posthemorrhagic anemia (principal); K92.2 Gastrointestinal hemorrhage, unspecified; K21.9 Gastro-esophageal reflux disease without esophagitis; I10 Essential (primary) hypertension; F41.9 Anxiety disorder, unspecified; K59.00 Constipation, unspecified; K64.8 Other hemorrhoids; R19.7 Diarrhea, unspecified; Z79.899 Other long term (current) drug therapy; Z87.442 Personal history of urinary calculi; Z91.018 Allergy to other foods

== ENCOUNTER 2021-09-27 12:48 | Emergency (ER) | payer OTHER ==
[~2021-09-27] VITALS: Ht 175.3 cm; Wt 112.8 kg
[~2021-09-27 12:48] MED LIST changes: +FISH1000 PO; +RA N1TAB PO; +ZINC1TAB2 PO
[2021-09-27 14:08] LABS: BASO % 1.1 % (0.0-1.0); EOS # 0.1 10^3/uL (0.0-0.5); EOS % 2.5 % (0.0-3.0); HEMATOCRIT 34.2 % (42.0-52.0); HEMOGLOBIN 9.3 g/dl (13.5-17.5); LYMPH # 0.5 10^3/uL (1.5-5.0); LYMPH % 19.6 % (24.0-44.0); MEAN CORPUSCULAR HEMOGLOBIN 18.5 pg (27.0-33.0); MEAN CORPUSCULAR HGB CONC 27.2 g/dl (32.0-36.5); MEAN CORPUSCULAR VOLUME 67.9 fl (80.0-96.0); MONO # 0.2 10^3/uL (0.0-0.8); MONO % 6.9 % (2.0-8.0); NEUTROPHILS # 1.9 10^3/uL (1.5-8.5); NEUTROPHILS % 69.5 % (36.0-66.0); PLATELET COUNT, AUTOMATED 313 10^3/uL (150-450); RED BLOOD COUNT 5.04 10^6/uL (4.30-6.10); WHITE BLOOD COUNT 2.8 10^3/uL (4.0-10.0)
[2021-09-27 14:19] LABS: INR 0.94; PARTIAL THROMBOPLASTIN TIME 30.7 SECONDS (25.9-37.0)
[2021-09-27 14:36] LABS: CK-MB VALUE MASS 2.3 NG/ML (<3.6); MB/CK RELATIVE INDEX 1.2 (< OR =4)
[2021-09-27 14:43] LABS: ALT/SGPT 33 U/L (12-78); BILIRUBIN,DIRECT 0.2 MG/DL (0.0-0.2); BILIRUBIN,TOTAL 0.5 MG/DL (0.2-1.0); BLOOD UREA NITROGEN 9 MG/DL (7-18); CALCIUM LEVEL 9.1 MG/DL (8.5-10.1); CARBON DIOXIDE LEVEL 24 MEQ/L (21-32); CHLORIDE LEVEL 110 MEQ/L (98-107); CREATININE FOR GFR 0.92 MG/DL (0.70-1.30); GLOMERULAR FILTRATION RATE > 60.0 (>60); GLUCOSE, FASTING 78 MG/DL (70-100); SODIUM LEVEL 141 MEQ/L (136-145); TOTAL PROTEIN 7.5 GM/DL (6.4-8.2)
[2021-09-27 17:30] VITALS: BP 149/86
== END 2021-09-27 18:06 | disposition home or self-care (01) ==
LOC: M ED 12:48
DX: R42 Dizziness and giddiness (principal); R06.02 Shortness of breath; R00.1 Bradycardia, unspecified; J34.9 Unspecified disorder of nose and nasal sinuses; I10 Essential (primary) hypertension; Z87.442 Personal history of urinary calculi; F41.9 Anxiety disorder, unspecified; K64.9 Unspecified hemorrhoids; Z79.899 Other long term (current) drug therapy

== ENCOUNTER → 2021-12-17 | Outpatient (CLI) | payer OTHER | LOC: M SLEEP HO 12:33 | PROVIDERS: ATTEND Nurse Practitioner Family | DX: G47.33 Obstructive sleep apnea (adult) (pediatric) (principal) ==

== ENCOUNTER → 2022-08-11 | Outpatient (REF) | payer OTHER ==
[2022-08-11 12:13] LABS: BASO # 0.1 10^3/uL (0.0-0.2); BASO % 1.5 % (0.0-1.0); EOS # 0.2 10^3/uL (0.0-0.5); EOS % 3.9 % (0.0-3.0); HEMATOCRIT 40.6 % (42.0-52.0); HEMOGLOBIN 10.8 g/dl (13.5-17.5); LYMPH # 0.9 10^3/uL (1.5-5.0); LYMPH % 21.3 % (24.0-44.0); MEAN CORPUSCULAR HGB CONC 26.6 g/dl (32.0-36.5); MEAN CORPUSCULAR VOLUME 71.5 fl (80.0-96.0); MONO # 0.3 10^3/uL (0.0-0.8); MONO % 7.7 % (2.0-8.0); NEUTROPHILS # 2.7 10^3/uL (1.5-8.5); NEUTROPHILS % 65.1 % (36.0-66.0); PLATELET COUNT, AUTOMATED 328 10^3/uL (150-450); RED BLOOD COUNT 5.68 10^6/uL (4.30-6.10); WHITE BLOOD COUNT 4.1 10^3/uL (4.0-10.0)
[2022-08-11 13:18] LABS: ALBUMIN 4.2 G/DL (3.2-5.2); ALKALINE PHOSPHATASE 128 U/L (46-116); ALT/SGPT 30 U/L (7.0-40); AST/SGOT 19 U/L (<34); BILIRUBIN,TOTAL 0.4 MG/DL (0.3-1.2); BLOOD UREA NITROGEN 11 MG/DL (9-23); CALCIUM LEVEL 9.2 MG/DL (8.5-10.1); CARBON DIOXIDE LEVEL 28 MMOL/L (20-31); CHLORIDE LEVEL 106 MMOL/L (98-107); CHOLESTEROL LEVEL 156 MG/DL (<200); CREATININE FOR GFR 0.77 MG/DL (0.70-1.30); FREE T4 1.04 NG/DL (0.89-1.76); GLOMERULAR FILTRATION RATE > 60.0 (>60); GLUCOSE, FASTING 94 MG/DL (60-100); HDL CHOLESTEROL 32.5 MG/DL (>40); LDL CHOLESTEROL 72.9 MG/DL (<100); MAGNESIUM LEVEL 1.8 MG/DL (1.8-2.4); NON-HDL-C 123.5 MG/DL; POTASSIUM SERUM 4.5 MMOL/L (3.5-5.1); SODIUM LEVEL 139 MMOL/L (136-145); THYROID STIMULATING HORMONE 2.953 uIU/ML (0.55-4.78); TOTAL PROTEIN 7.4 G/DL (5.7-8.2); TRIGLYCERIDES LEVEL 253 MG/DL (<150)
== END ==
LOC: M SFHCCLAY 07:02
PROVIDERS: ATTEND Nurse Practitioner Family
DX: I10 Essential (primary) hypertension (principal); F41.9 Anxiety disorder, unspecified; G47.33 Obstructive sleep apnea (adult) (pediatric); Z13.1 Encounter for screening for diabetes mellitus

== ENCOUNTER → 2024-03-08 | Outpatient (REF) | payer OTHER ==
[2024-03-08 11:47] LABS: BASO # 0.1 10^3/uL (0.0-0.2); BASO % 1.8 % (0.0-1.0); EOS # 0.2 10^3/uL (0.0-0.5); EOS % 4.4 % (0.0-3.0); HEMATOCRIT 29.4 % (42.0-52.0); LYMPH # 1.1 10^3/uL (1.5-5.0); LYMPH % 23.3 % (24.0-44.0); MEAN CORPUSCULAR HEMOGLOBIN 14.9 pg (27.0-33.0); MEAN CORPUSCULAR HGB CONC 23.8 g/dl (32.0-36.5); MEAN CORPUSCULAR VOLUME 62.6 fl (80.0-96.0); MONO # 0.4 10^3/uL (0.0-0.8); MONO % 8.2 % (2.0-8.0); NEUTROPHILS # 2.8 10^3/uL (1.5-8.5); NEUTROPHILS % 61.9 % (36.0-66.0); PLATELET COUNT, AUTOMATED 528 10^3/uL (150-450); WHITE BLOOD COUNT 4.5 10^3/uL (4.0-10.0)
[2024-03-08 11:54] LABS: ALBUMIN 4.2 G/DL (3.2-5.2); ALKALINE PHOSPHATASE 101 U/L (40-129); ALT/SGPT 15 U/L (7.0-40); AST/SGOT < 8 U/L (<34); BILIRUBIN,TOTAL 0.7 MG/DL (0.3-1.2); BLOOD UREA NITROGEN 13 MG/DL (9-23); CARBON DIOXIDE LEVEL 26 MMOL/L (20-31); CHLORIDE LEVEL 111 MMOL/L (98-107); CHOLESTEROL LEVEL 141 MG/DL (<200); CHOLESTEROL RISK RATIO 4.59 (<5); CREATININE FOR GFR 0.72 MG/DL (0.70-1.30); FREE T4 1.23 NG/DL (0.89-1.76); GLOMERULAR FILTRATION RATE > 60.0 (>60); GLUCOSE, FASTING 100 MG/DL (60-100); HDL CHOLESTEROL 30.7 MG/DL (>40); LDL CHOLESTEROL 83.7 MG/DL (<100); NON-HDL-C 110.3 MG/DL; POTASSIUM SERUM 5.1 MMOL/L (3.5-5.1); SODIUM LEVEL 141 MMOL/L (136-145); THYROID STIMULATING HORMONE 2.854 uIU/ML (0.55-4.78); TOTAL PROTEIN 7.5 G/DL (5.7-8.2); TRIGLYCERIDES LEVEL 133 MG/DL (<150)
[2024-03-08 15:17] LABS: IRON (FE) 11 UG/DL (65-175); PERCENT SATURATION 2.5 % (19.7-50.0); TOTAL IRON BINDING CAPACITY 434 UG/DL (250-425)
[2024-03-08 15:19] LABS: FERRITIN 1.5 NG/ML (10.5-307.3); FOLATE 13.66 NG/ML (>5.4)
[2024-03-08 15:20] LABS: VITAMIN B12 LEVEL 654 PG/ML (211-911)
== END ==
LOC: M SFHCCLAY 08:00
PROVIDERS: ATTEND Nurse Practitioner Family
DX: I10 Essential (primary) hypertension (principal); D64.9 Anemia, unspecified; G47.33 Obstructive sleep apnea (adult) (pediatric); F41.9 Anxiety disorder, unspecified; Z13.1 Encounter for screening for diabetes mellitus

== ENCOUNTER 2024-03-28 12:13 | Outpatient (CLI) | payer OTHER ==
[~2024-03-28] VITALS: Ht 175.3 cm; Wt 109.1 kg
[~2024-03-28 12:13] MED LIST changes: +ALBUTEROL SULFATE 2.5MG/0.5ML INH NEB SOLN INH PRN; +EPINEPHrine INJ 1 MG/ML 1ML AMP IM PRN; +diphenhydrAMINE 50MG/ML VIAL IV PRN; +methylPREDNISolone 125MG 2ML VIAL IV PRN
[2024-03-28 12:40] VITALS: BP 164/89; O2SAT 100
[2024-03-28] MEDS: ACETAMINOPHEN 650 MG PO ONE (12:47)
[2024-03-28] MEDS: IRON SUCROSE 300 MG in NS 250 ML OVER 90 MIN. IV ONE (13:15)
[2024-03-28 15:08] VITALS: BP 150/90; O2SAT 98
== END 2024-03-28 15:10 ==
LOC: M INFU 12:13
PROVIDERS: ATTEND Nurse Practitioner Family
DX: D50.9 Iron deficiency anemia, unspecified (principal); Z91.018 Allergy to other foods
CPT/HCPCS: 96365; 96366; J1756

== ENCOUNTER 2024-04-04 11:35 | Outpatient (CLI) | payer OTHER ==
[~2024-04-04] VITALS: Ht 175.3 cm; Wt 110.9 kg
[2024-04-04 11:35] VITALS: BP 189/84; O2SAT 100
[2024-04-04] MEDS: ACETAMINOPHEN 325 MG TAB PO ONE (11:45)
[2024-04-04] MEDS: IRON SUCROSE 300 MG in NS 250 ML IV ONE (11:45)
[2024-04-04 13:20] VITALS: BP 135/74; O2SAT 99
[2024-04-04 13:55] VITALS: BP 117/64; O2SAT 99
== END 2024-04-04 13:30 | disposition home or self-care (01) ==
LOC: M INFU 11:35
PROVIDERS: ATTEND Nurse Practitioner Family
DX: D50.9 Iron deficiency anemia, unspecified (principal); Z91.018 Allergy to other foods
CPT/HCPCS: 96365; 96366; J1756

== ENCOUNTER → 2024-08-15 | Outpatient (REF) | payer OTHER ==
[~2024-08-15] MED LIST changes: -ALBUTEROL SULFATE 2.5MG/0.5ML INH NEB SOLN INH PRN; -EPINEPHrine INJ 1 MG/ML 1ML AMP IM PRN; -diphenhydrAMINE 50MG/ML VIAL IV PRN; -methylPREDNISolone 125MG 2ML VIAL IV PRN
[2024-08-15 13:38] LABS: BASO # 0.1 10^3/uL (0.0-0.2); BASO % 1.3 % (0.0-1.0); EOS # 0.2 10^3/uL (0.0-0.5); EOS % 5.1 % (0.0-3.0); HEMATOCRIT 40.9 % (42.0-52.0); HEMOGLOBIN 11.3 g/dl (13.5-17.5); LYMPH % 24.4 % (24.0-44.0); MEAN CORPUSCULAR HGB CONC 27.6 g/dl (32.0-36.5); MEAN CORPUSCULAR VOLUME 68.9 fl (80.0-96.0); MONO # 0.3 10^3/uL (0.0-0.8); MONO % 7.9 % (2.0-8.0); NEUTROPHILS # 2.4 10^3/uL (1.5-8.5); PLATELET COUNT, AUTOMATED 296 10^3/uL (150-450); RED BLOOD COUNT 5.94 10^6/uL (4.30-6.10); WHITE BLOOD COUNT 3.9 10^3/uL (4.0-10.0)
[2024-08-15 14:11] LABS: ALBUMIN 4.1 G/DL (3.2-5.2); ALKALINE PHOSPHATASE 105 U/L (40-129); ALT/SGPT 27 U/L (7.0-40); AST/SGOT 20 U/L (<34); BILIRUBIN,TOTAL 0.6 MG/DL (0.3-1.2); BLOOD UREA NITROGEN 13 MG/DL (9-23); CALCIUM LEVEL 9.2 MG/DL (8.5-10.1); CARBON DIOXIDE LEVEL 26 MMOL/L (20-31); CHLORIDE LEVEL 106 MMOL/L (98-107); GLOMERULAR FILTRATION RATE > 90.0 (>60); GLUCOSE, FASTING 98 MG/DL (60-100); IRON (FE) 17 UG/DL (65-175); PERCENT SATURATION 3.8 % (19.7-50.0); POTASSIUM SERUM 4.6 MMOL/L (3.5-5.1); SODIUM LEVEL 141 MMOL/L (136-145); TOTAL IRON BINDING CAPACITY 443 UG/DL (250-425); TOTAL PROTEIN 7.2 G/DL (5.7-8.2)
[2024-08-15 14:12] LABS: FERRITIN 2.2 NG/ML (10.5-307.3)
== END ==
LOC: M SFHCCLAY 07:20
PROVIDERS: ATTEND Nurse Practitioner Family
DX: Z13.1 Encounter for screening for diabetes mellitus (principal); D64.9 Anemia, unspecified

== ENCOUNTER 2024-08-23 14:17 | Outpatient (CLI) | payer OTHER ==
[~2024-08-23] VITALS: Ht 175.3 cm; Wt 112.0 kg
[~2024-08-23 14:17] MED LIST changes: +ALBUTEROL SULFATE 2.5MG/0.5ML INH CONCENTRATE NEB SOLN INH PRN; +EPINEPHrine INJ 1 MG/ML 1ML AMP IM PRN; +diphenhydrAMINE 50MG/ML VIAL IV PRN; +methylPREDNISolone 125MG 2ML VIAL IV PRN
[2024-08-23 15:00] VITALS: BP 142/70; O2SAT 98
[2024-08-23] MEDS: ACETAMINOPHEN 650 MG PO ONE (15:10)
[2024-08-23] MEDS: FERRIC CARBOXYMALTOSE 750 MG (VIAL MATE) IN 100ML NS IV ONE (15:14)
[2024-08-23] MEDS ORDERED: NS (Normal Saline) 0.9% 1,000 ML IV SCH (15:30)
[2024-08-23 16:00] VITALS: BP 134/70; O2SAT 95
== END 2024-08-23 16:00 | disposition home or self-care (01) ==
LOC: M INFU 14:17
PROVIDERS: ATTEND Nurse Practitioner Family
DX: D50.9 Iron deficiency anemia, unspecified (principal); Z91.018 Allergy to other foods
CPT/HCPCS: 96365; J1439

== ENCOUNTER 2024-08-30 14:15 | Outpatient (CLI) | payer OTHER ==
[~2024-08-30] VITALS: Ht 175.3 cm; Wt 112.3 kg
[2024-08-30] MEDS ORDERED: NS (Normal Saline) 0.9% 1,000 ML IV SCH (14:30)
[2024-08-30 14:35] VITALS: BP 168/92; O2SAT 99
[2024-08-30] MEDS: FERRIC CARBOXYMALTOSE 750 MG (VIAL MATE) IN 100ML NS IV ONE (14:53)
[2024-08-30] MEDS: ACETAMINOPHEN 650 MG PO ONE (14:54)
[2024-08-30 15:10] VITALS: BP 134/81; O2SAT 98
== END 2024-08-30 15:10 | disposition home or self-care (01) ==
LOC: M INFU 14:15
PROVIDERS: ATTEND Nurse Practitioner Family
DX: D50.9 Iron deficiency anemia, unspecified (principal); Z91.018 Allergy to other foods
CPT/HCPCS: 96365; J1439

== ENCOUNTER → 2024-11-13 | Outpatient (REF) | payer OTHER ==
[~2024-11-13] MED LIST changes: -ALBUTEROL SULFATE 2.5MG/0.5ML INH CONCENTRATE NEB SOLN INH PRN; -EPINEPHrine INJ 1 MG/ML 1ML AMP IM PRN; -diphenhydrAMINE 50MG/ML VIAL IV PRN; -methylPREDNISolone 125MG 2ML VIAL IV PRN
[2024-11-13 12:47] LABS: BASO # 0.0 10^3/uL (0.0-0.2); BASO % 1.0 % (0.0-1.0); EOS # 0.2 10^3/uL (0.0-0.5); EOS % 4.7 % (0.0-3.0); LYMPH # 0.9 10^3/uL (1.5-5.0); LYMPH % 24.4 % (24.0-44.0); MONO # 0.3 10^3/uL (0.0-0.8); MONO % 8.3 % (2.0-8.0); NEUTROPHILS # 2.4 10^3/uL (1.5-8.5); NEUTROPHILS % 61.1 % (36.0-66.0); PLATELET COUNT, AUTOMATED 309 10^3/uL (150-450)
== END ==
LOC: M SFHCCLAY 09:21
PROVIDERS: ATTEND Nurse Practitioner Family
DX: D64.9 Anemia, unspecified (principal)

== ENCOUNTER 2024-12-18 14:05 | Outpatient (CLI) | payer OTHER ==
[~2024-12-18] VITALS: Ht 175.3 cm; Wt 109.1 kg
[~2024-12-18 14:05] MED LIST changes: +ALBUTEROL SULFATE 2.5 MG/0.5 ML INH CONCENTRATE NEB SOLN INH PRN; +EPINEPHrine INJ 1 MG/ML 1ML AMP IM PRN; -IBUP-1022 PO; +IBUP600T42 PO; +diphenhydrAMINE 50 MG/ML VIAL IV PRN
[2024-12-18] MEDS: FERRIC CARBOXYMALTOSE 750 MG (VIAL MATE) IN 100ML NS IV ONE (14:40)
[2024-12-18] MEDS: ACETAMINOPHEN 650 MG PO ONE (14:41)
[2024-12-18 14:49] VITALS: BP 164/86; O2SAT 100
[2024-12-18 14:59] VITALS: BP 152/72; O2SAT 100
== END 2024-12-18 15:00 ==
LOC: M INFU 14:05
PROVIDERS: ATTEND Nurse Practitioner Family
DX: D64.9 Anemia, unspecified (principal); Z91.018 Allergy to other foods
CPT/HCPCS: 96365; J1439

== ENCOUNTER 2024-12-25 14:42 | Outpatient (CLI) | payer OTHER ==
[~2024-12-25] VITALS: Ht 175.3 cm; Wt 109.0 kg
[2024-12-25 14:30] VITALS: BP 139/77; O2SAT 98
[2024-12-25] MEDS: FERRIC CARBOXYMALTOSE 750 MG (VIAL MATE) IN 100ML NS IV ONE (14:49)
[2024-12-25] MEDS: ACETAMINOPHEN 650 MG PO ONE (14:50)
[2024-12-25 15:05] VITALS: BP 139/76; O2SAT 97
== END 2024-12-25 15:10 ==
LOC: M INFU 14:42
PROVIDERS: ATTEND Nurse Practitioner Family
DX: D64.9 Anemia, unspecified (principal); Z91.018 Allergy to other foods
CPT/HCPCS: 96365; J1439